=== PATIENT | female | born 1960 | race Caucasian/White ===

== ENCOUNTER → 2016-08-12 | Outpatient (CLI) | payer OTHER ==
[~2016-08-12] MED LIST: BIRTH CONTROL
--- NOTE | 2016-08-12 17:46 | DI ---
EXAM: MRI ANKLE LEFT W/O CONTRAST [place] [facility] [place]ORY: ITS.REASON: M25.572 LEFT ANKLE PAIN . Pain started in March. Swelling off-and-on. Pain started on lateral side. Has also moved to heal/Achilles. COMPARISON: None available. TECHNIQUE: T-1, proton or T-2 fat saturation, or STIR images were obtained in the axial, sagittal and coronal planes through the ankle. FINDINGS: A sliver of increased T2 signal is seen within the intrasubstance of the distal Achilles tendon which could merely be a normal variation although a intrasubstance tear or tendinosis cannot be excluded. There is a trace of fluid signal adjacent to the tibialis posterior and flexor hallucis longus tendons which may represent minimal tenosynovitis. The peroneal longus and brevis tendons are intact and appear unremarkable. The tibiocalcaneal ligament is intact. The calcaneofibular ligament is thought to be intact. The anterior and posterior tibiotalar ligaments are thought to be intact. The anterior and posterior talofibular ligaments are thought to be intact although the anterior talofibular ligament is somewhat ill-defined. Subcutaneous edema is seen surrounding the ankle. There is a small ankle effusion present. There is mild increased T2 signal superficial to the plantar fascia. The talar dome and tibial plafond are intact. There is mild increased T2 signal at the medial aspect of the lateral malleolus. Some subchondral increased T2 signal is also seen at the mid tibial plafond and. The talar dome is unremarkable. No abnormal signal is seen within the calcaneus, cuboid, navicular, or cuneiforms bones. The bases of the metatarsals are intact as well. The extensor tendons are intact and appear unremarkable. IMPRESSION: 1. Minimal 2. Minimal tenosynovitis of the tibialis posterior and flexor hallucis longus tendons. 2. There is a sliver of intrasubstance signal seen within the distal Achilles tendon. This may merely be a normal variation. An intrasubstance tear or tendinosis cannot be entirely excluded but seems less likely. 3. Subcutaneous changes edema seen surrounding the ankle. 4. Small ankle effusion. 5. Mild increased T2 signal changes are seen superficial to the plantar fascia at its attachment to the calcaneus. 6. Focal area of subchondral edema is seen at the mid tibial plafond which is of uncertain etiology. A early osteochondral injury cannot be entirely excluded. 7. Subchondral edema seen at the medial aspect of the lateral malleolus which may be related to degenerative change. .
== END ==
LOC: IMA 09:27
PROVIDERS: ATTEND Family Medicine Sports Medicine
DX: M25.472 Effusion, left ankle (principal); M65.9 Synovitis and tenosynovitis, unspecified; R60.0 Localized edema; R93.7 Abnormal findings on diagnostic imaging of other parts of musculoskeletal system; M25.572 Pain in left ankle and joints of left foot

== ENCOUNTER 2017-08-25 22:01 | Observation (INO) ==
--- OUTSIDE RECORDS SUMMARY | 2017-08-25 22:32 | External Medical Summary | Summary of Care ---
:1960 Author Name Charlie Martinez M.D. Address Unavailable Unavailable , Care Team Providers Name Role Phone Michelle Barrios, Charlie Unavailable Unavailable Erendira Akhtar Unavailable Unavailable Unavailable Unavailable Unavailable Functional Status Functional Status Health Issues Name Dates Details Functional status health issues are not documented Status: Cognitive Status Health Issues Name Dates Details Cognitive status health issues are not documented Status: Problems Name Dates Details Peritonsillar abscess (475, J36) Status: Active Medications Name Dates Details Amoxicillin 125 MG Oral Tablet Chewable Refills: 0 Start 29-Jan-2016 Active PredniSONE 10 MG Oral Tablet TAKE 4 TABLETS DAILY FOR 3 DAYS,3 TABLETS DAILY FOR 3 DAYS, 2 TABLETS DAILY FOR 3 DAYS AND 1 TABLET DAILY FOR 3 DAYS, THEN STOP. Quantity: 30 Refills: 0 Charlie Martinez M.D. Start 29-Jan-2016 Active Allergies and Adverse Reactions Name Dates Details Sulfa Drugs (Allergy) Status: Active Procedures Procedure Dates Details ABSCESS/CYST CULTURE (Aerobic and Ananerobic) X02032 Ordered: 29-Jan-2016 Immunization Name Dates Details Immunizations not documented Family History Mother Name Dates Details Family history of cardiac disorder (V17.49, Z82.49) Status: Active Family history of hypertension (V17.49, Z82.49) Status: Active Family history of diabetes mellitus (V18.0, Z83.3) Status: Active Social History Name Dates Details - Status: Smoking Status Name Dates Details Never smoker Vital Signs Date Test Result Details 29-Jan-2016 09:34 Temperature 97.9 f Status: Comments: Method: Heart Rate 67 /min Status: Comments: Location: ; Physical Findings 19 Status: Comments: Respiration Weight 150 lb Status: Physical Findings 98 Status: Comments: O2 Saturation Results Date Description Value Details Results not documented Plan of Care Name Dates Details Planned Observations Planned Goals not documented Planned Encounters Appointment; Provider: Charlie Martinez M.D. On 09-Feb-2016 13:15 Interventions Provided Medication ChangesPredniSONE 10 MG Oral Tablet - StartLabs/Procedures/Imaging ABSCESS/CYST CULTURE (Aerobic and Ananerobic) [id number]; To be Done: 29 Jan 2016 Instructions Name Dates Details Instructions not documented Encounters Appointment; Charlie Martinez M.D. On 29-Jan-2016 Encounter Diagnosis: Problem not documented 09:45
--- OUTSIDE RECORDS SUMMARY | 2017-08-25 22:32 | External Medical Summary | Summary of Care ---
:1960 Author Name Charlie Martinez M.D. Address Unavailable Unavailable , Care Team Providers Name Role Phone Charlie Martinez M.D. Unavailable Unavailable Erendira Akhtar Unavailable Unavailable Unavailable Unavailable Unavailable Functional Status Functional Status Health Issues Name Dates Details Functional status health issues are not documented Status: Cognitive Status Health Issues Name Dates Details Cognitive status health issues are not documented Status: Problems Name Dates Details Active medical history not documented Status: Medications Name Dates Details Amoxicillin 125 MG Oral Tablet Chewable Refills: 0 Start 29-Jan-2016 Active Allergies and Adverse Reactions Name Dates Details Sulfa Drugs (Allergy) Status: Active Procedures Procedure Dates Details Procedures not documented Immunization Name Dates Details Immunizations not documented [...] Details Planned Observations Planned Goals not documented Instructions Name Dates Details Instructions not documented Encounters Appointment; Charlie Martinez M.D. On 29-Jan-2016 Encounter Diagnosis: Problem not documented 09:45
--- OUTSIDE RECORDS SUMMARY | 2017-08-25 22:32 | External Medical Summary | Summary of Care ---
:1960 Author Name Michelle Barrios Charlie Address Unavailable Unavailable , Care Team Providers Name Role Phone Michelle BarriosCharlie Unavailable Unavailable Erendira Akhtar Unavailable Unavailable Unavailable [...] DAYS, THEN STOP. Quantity: 30 Refills: 0 Michelle Barrios Charlie Start 29-Jan-2016 Active Allergies and Adverse Reactions [...] O2 Saturation Results Date Description Value Details 04-Feb-2016 10:33 ABSCESS/CYST CULTURE (Aerobic Comments: [facility] performed at: [place], [facility], [address] [place], [address], Dressage Judge: Yung Donald D.O., MPHQuest Collection Date/Time: and Silvana [id number] Results Received Date/Time: [id number] Reported Date/Time: [id number] RIGHT PERITONSILLAR ABSCESS FASTING:NOQuest performed at: [place], [facility], [address] [facility], [place], [place], [address] [place] [address], Dressage Judge : Yung Donald D.O., MPHQuest Collection Date/Time: [id number] Results Received Date/Time: [id number] Repor sp Date/Time: [id number] RIGHT PERITONSILLAR ABSCESS FASTING:NOQuest performed at: [place], [facility], [address] [place], [place], [address] [place] [address], Dressage Judge: Yung Donald D.O., MPHQuest Collection Date/Time: [id number] Results Received Date/Time: [id number] Reported Date/Time: [id number] RIGHT PERITONSILLAR ABSCESS FASTING:N OQuest performed at: [place], [facility] [place], [address] [facility], [place], [place], [address] [place] [address], Dressage Judge: Yung Donald D.O., MPHQuest Collection Date/Time: [id number] Results Received Date/Time: [id number] Reported Date/Time: [id number] RIGHT PERITONSILLAR ABSCESS FASTING:NOQuest performed at: [place], [facility], [address] [facility], [place], [place], [address] [place] [address], Dressage Judge: Yung Donald D.O., MPHQuest Collection Date/Time: [id number] Results Received Date/Time: [id number] Repo rted Date/Time: [id number] RIGHT PERITONSILLAR ABSCESS FASTING:NO CULTURE, ANAEROBIC BACTERIA SEE NOTE Comments: CULTURE, ANAEROBIC BACTERIA W/GRAM STAIN MICRO NUMBER: [id number] TEST STATUS: FINAL SPECIMEN SOURCE: ABSCESS SPECIMEN QUALITY: ADEQUATE GRAM STAIN: Moderate White blood cells W/GRAM STAIN seen Many Mixed bacterial paddy RESULT : A mix of non-predominating organisms of questionable significance was recovered on cultur e and not further identified. (Note: Growth does not include B.fragilis group or C.perfringens.)[KS]----- CULTURE, AEROBIC BACTERIA SEE NOTE Comments: CULTURE, AEROBIC BACTERIA MICRO NUMBER: [id number] TEST STATUS: FINAL SPECIMEN SOURCE: ABSCESS SPECIMEN QUALITY: ADEQUATE RESULT: No oropharyngeal pathogens recovered.[KS]----- Plan of Care Name Dates Details Planned Observations Planned Goals not documented Instructions Name Dates Details Instructions not documented Encounters Appointment; Charlie Martinez M.D. On 29-Jan-2016 Encounter Diagnosis: Problem not documented 09:45
[2017-08-25] MEDS ORDERED: SALINE FLUSH 10ml SYRINGE IVF PRN (22:33)
--- NOTE | 2017-08-25 22:41 | Emergency Department Report ---
General Adult HPI - General Chief complaint: Extremity Problem,Nontraumatic <August,James 08/25/17 23:57> Stated complaint: tingly in left arm, hot flashes <08/25/17 23: 57> Source: patient <Apple Linton 08/25/17 22:42> Mode of arrival: ambulatory <Apple Linton 08/25/17 22:42> Limitations: no limitations <Apple Linton 08/25/17 22:42> - History of Present Illness HPI narrative: PT presents with a complaint of left hand and arm tingling. Pt was sitting on the couch looking at her tablet when she noted the numbness and tingling. Pt denies sitting on her arm or having it positioned in a way that would cut off circulation. Pt then reports having a hot flash. her biggest concern is that she had a physical about 2 weeks ago at which she had a heart rate of 44. She was then referred to cardiology who did a preliminary [facility] PT denies SOA, chest pain, cough, leg swelling, recent fever or illness, N/V/D. She states the tingling to her hand is almost resolved. She reports she has maintained motor and sensation with the numbness and tingling. She is concerned she may be having a heart attack and is worried about her heart rate. <Apple Linton 08/25/17 22:42> Onset (ago): minute(s) <Apple Linton 08/25/17 22:42> Location: upper extremity <Apple Linton 08/25/17 22:42> Radiation: non-radiation <Apple Linton 08/25/17 22:42> - Related Data Home Medications Medication Instructions Recorded Confirmed No known Home medications [No home 08/25/17 08/25/17 meds] <08/25/17 23:57> Allergies Allergy/AdvReac Type Severity Reaction Status Date / Time Sulfa (Sulfonamide Allergy RASH Verified 08/25/17 22:15 Antibiotics) skin so soft bobby product AdvReac Unknown Uncoded 08/25/17 22:15 <May08/25/17 23:57> Review of Systems All systems: reviewed and negative except as stated <Apple Linton 22:42> Constitutional: Reports: as per HPI <Apple Linton 08/25/17 22:42> Cardiovascular: Reports: as per HPI <Apple Linton 08/25/17 22:42> Respiratory: Reports: as per HPI <Apple Linton 08/25/17 22:42> Gastrointestinal: Reports: as per HPI <Apple Linton 08/25/17 22:42> Musculoskeletal: Reports: as per HPI <Apple Linton 08/25/17 22:42> Neurological: Reports: as per HPI <Apple Linton 08/25/17 22:42> [facility] Medical History (Last Reviewed 09/09/16 @ 11:18 by Lana Sainz MD) Hypercholesterolemia (Acute Medical) <eb 08/25/17 23:57> Clinic Medical History (Last Reviewed 09/09/16 @ 11:18 by Lana Sainz MD) Hypercholesterolemia (Acute Medical) <Apple garcia 08/25/17 22:42> Surgical History: Breast biopsy. Colonoscopy <Apple Linton 08/25/17 22:42> Family History: Family History (Last Reviewed 09/09/16 @ 11:18 by Lana Sainz MD) Mother High blood pressure Diabetes Paternal Grandmother Stroke Maternal Aunt Cancer of breast <08/25/17 23:57> Family History (Last Reviewed 09/09/16 @ 11:18 by Lana Sainz MD) Mother High blood pressure Diabetes Paternal Grandmother Stroke Maternal Aunt Cancer of breast <Apple Linton 08/25/17 22:42> - Social History Smoking status: Never smoker <Apple Linton 08/25/17 22:42> Substance use type: does not use <Apple Linton 08/25/17 22:42> Alcohol intake: current <Apple Linton 08/25/17 22:42> Alcohol intake frequency: other <NataliazachmadisonApplenaila Chen 08/25/17 22:42> Household members: spouse <Apple Linton 08/25/17 22:42> Current occupational status: employed <RoyerApplenaila Chen 08/25/17 22:42> 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 <Apple Linton 08/25/17 22:42> Physical Exam - Limitations Limitations: no limitations <Apple Linton 08/25/17 22:42> - General General appearance: alert, in no apparent distress <Apple Linton 08/25 22:42> - Normal Exams: Head:: Normocephalic without trauma <Apple Linton 08/25/17 22:42> Chest/Respirations:: Clear all solis, with good airflow, and symmetry bilaterally <Apple Linton 08/25/17 22:42> Cardiovascular:: Regular rate and rhythm (slow ), without murmur or gallop, Pulses 2+ all extremities, capillary refill, <2 seconds all extremities < RoyerApplenaila Chen 08/25/17 22:42> Abdomen:: Bowel sounds positive, soft, non-tender, non-distended <Apple Linton 08/25/17 22:42> Musculoskeletal:: No tenderness, or deformity noted, good range of motion, all extremities <Apple Linton 08/25/17 22:42> Integumentary:: No rashes <Apple Linton 08/25/17 22:42> Neurological:: Patient is alert, and oriented, cranial nerves, motor/sensory/ cerebellar, exams w/o gross deficits, to observation <Apple Linton 22:42> Psychiatric:: Patient exhibits, appropriate attention, emotion and affect < Apple Linton 08/25/17 22:42> Course Vital Signs Temperature 97.6 F 08/25/17 22:05 Pulse Rate 45 L 08/25/17 22:05 Respiratory Rate 18 08/25/17 22:05 Blood Pressure 164/75 H 08/25/17 22:05 Pulse Oximetry 98 08/25/17 22:05 Temperature 97.6 F 08/25/17 22:05 Pulse Rate 54 L 08/25/17 23:45 Respiratory Rate 18 08/25/17 23:45 Blood Pressure 134/72 08/25/17 23:45 Pulse Oximetry 96 08/25/17 23:45 <AugustJames - 08/25/17 23:57> Vital Signs Temperature 97.6 F 08/25/17 22:05 Pulse Rate 45 L 08/25/17 22:05 Respiratory Rate 18 08/25/17 22:05 Blood Pressure 164/75 H 08/25/17 22:05 Pulse Oximetry 98 08/25/17 22:05 Temperature 97.6 F 08/25/17 22:05 Pulse Rate 45 L 08/25/17 22:05 Respiratory Rate 18 08/25/17 22:05 Blood Pressure 164/75 H 08/25/17 22:05 Pulse Oximetry 98 08/25/17 22:05 <Apple Linton 08/25/17 22:42> Medical Decision Making - [facility] Narrative Medical decision making narrative: PT reports resolution of tingling to fingertips. EKG shows Mobitz II. Labs and X ray reviewed with no acute findings. Although pt cannot specifically identify particular complaints she has stated that she just "doesn't feel right". Discussed pt presentation and findings with Shante with Dr Bernal who feels pt could be admitted observation at this time and will be seen by Gabe in the am. Plan and potential expectations of stay discussed with pt and family who verbalize understanding. Pt has remained 45-64 on telemetry while in the ER. <Apple Linton 08/25/17 23:52> - Differential Diagnosis bradycardia, anemia, AMI, nerve impingement <Apple Linton 08/25/17 22: 42> - Lab Data Lab results reviewed: Yes: I reviewed the patient's lab results. <Apple Linton 08/25/17 23:52> Result diagrams: 08/25/17 23:21 08/25/17 23:21 <[facility] 08/25/17 23:57> Lab Results 08/25/17 08/25/17 Range/Units 23:21 23:21 WBC 14.5 H (4.5-11.0) T/MM3 RBC 4.59 (4.00-5.20) M/MM3 Hgb 13.2 (12-16) GM/DL Hct 40.3 (36-46) % MCV 87.8 (80-100) UM3 MCH 28.8 (26-34) UUG MCHC 32.8 (31-37) GM/DL RDW Std Deviation 47.1 (36.9-50.2) FL Plt Count 252 (130-400) T/MM3 MPV 9.6 (9.4-12.4) UM3 Immature Gran % (Auto) 0.2 (0.0-0.5) % Neut % (Auto) 50.7 (33-66) % Lymph % (Auto) 36.1 (23-45) % [place] % (Auto) 9.0 (0-9.0) % Eos % (Auto) 3.6 (0-4) % Baso % (Auto) 0.4 (0-2) % Neut # (Auto) 7.3 (1.8-7.7) T/MM3 Lymph # (Auto) 5.2 H (1-4.8) T/MM3 [place] # (Auto) 1.3 H (0-0.8) T/MM3 Eos # (Auto) 0.5 (0-0.5) T/MM3 Baso # (Auto) 0.1 (0-0.2) T/MM3 Abs Immat Gran (auto) 0.03 (0.00-0.03) T/MM3 Turbidity < 20 (0-20) Sodium 145 H (134-144) MEQ/L Potassium 3.7 (3.6-5) MEQ/L Chloride 107 (98-107) MEQ/L Carbon Dioxide 28 (22-30) MEQ/L Anion Gap 10 (5-15) meq/L BUN 21.0 H (7-17) MG/DL Creatinine 0.8 (0.7-1.2) mg/dL GFR Calculation 74 BUN/Creatinine Ratio 26 (6-26) RATIO Glucose 104 (65-110) MG/DL Calculated Osmolality 282 H (261-280) MOSM/KG Calcium 9.5 (8.4-10.2) MG/DL Total Bilirubin 0.20 (0.20-1.30) MG/DL Icterus Index < 2 (0-7) AST 28 (14-36) U/L ALT 33 (1-35) U/L Alkaline Phosphatase 113 (38-126) U/L Troponin I < 0.012 (0-0.12) ng/ml Total Protein 6.8 (6.3-8.2) g/dL Albumin 3.8 (3.5-5.0) g/dL Globulin 3.0 (2.4-3.6) G/DL Albumin/Globulin Ratio 1.3 (1.1-2.2) RATIO Specimen Hemolysis < 15 (0-25) <08/25/17 23:57> - Radiology Data Radiology results reviewed: Yes: I reviewed the patient's radiology results. < Apple Linton 08/25/17 23:52> no acute findings per August <Apple Linton 08/25/17 23:52> - EKG Data EKG #1 EKG attestation: Yes: I reviewed and interpreted this EKG. <08/25 23:57> Yes: I reviewed and interpreted this EKG. <Apple Linton 08/25/17 23:52> EKG shows normal: sinus rhythm, axis, QRS complexes, ST-T waves <08/25/17 23:57> Rate: bradycardia <08/25/17 23:57> bradycardia <Apple Linton 08/25/17 23:52> Heart block present: Mobitz 2 <08/25/17 23:57> Disposition Clinical Impression: Bradycardia, Mobitz II <08/25/17 23:57> Disposition: 02 To [facility] [place] <08/25/17 23:57> Condition: Stable <08/25/17 23:57> Instructions: <08/25/17 23:57> Prescriptions: No Action No known Home medications [No home meds] 0 #0 misc <08/25/17 23:57> Referrals: Erendira Akhtar MD [Primary Care Provider] - <James Kebede 23:57> Forms: <AugustJames 08/25/17 23:57> Time of Disposition: 23:52 <Apple Linton 08/25/17 23:52> - Seen By: midlevel <Apple Linton 08/25/17 23:52>
[2017-08-26 00:07] VITALS: BMI 30.9
[2017-08-26] MEDS ORDERED: ASPIRIN *EC* 81 MG TABLET PO ONE (00:27)
[2017-08-26] MEDS ORDERED: ACETAMINOPHEN 325 MG TABLET PO PRN (00:28)
[2017-08-26] MEDS ORDERED: ONDANSETRON 4 MG TABLET PO PRN (00:29)
[2017-08-26] MEDS ORDERED: MAG-AL + SIM ORAL LIQUID 30ml PO PRN (00:30)
[2017-08-26] MEDS ORDERED: ENOXAPARIN 30 MG/0.3 ML INJECTION SQ SCH (00:30)
[2017-08-26] MEDS ORDERED: ENOXAPARIN 30 MG/0.3 ML INJECTION SQ ONE (06:45)
[2017-08-26] MEDS ORDERED: NITROGLYCERIN 0.4 MG SUBLINGUAL TABLET SL PRN (07:13)
--- NOTE | 2017-08-26 08:08 | XRay Report ---
INDICATION: arm tingling, low HR PROCEDURE: CHEST 2-VIEWS UPRIGHT (PA & LAT) Encounter: Initial COMPARISON: None FINDINGS: The lungs are clear without evidence of focal abnormal airspace opacity. There is no pleural effusion or pneumothorax. The heart size, mediastinal contours and pulmonary vascularity are within normal limits. There is no significant skeletal abnormality. IMPRESSION: No acute cardiopulmonary disease. .
[2017-08-26 12:15] VITALS: BP 125/65; PULSE 46; RESP 24; TEMP 98; O2SAT 96
--- NOTE | 2017-08-26 14:11 | Discharge Summary ---
Discharge Information Date of admission: 08/25/17 23:46 Anticipated date of discharge: 08/26/17 Attending Physician: Dennis Bernal MD Primary care physician: Erendira Akhtar MD Bradycardia - Laboratory Labs: 08/26/17 05:59 08/26/17 05:59 History of Present Illness HPI: Shante is a 57 year old female who is known to Dr. Bernal with a recent history of bradycardia. She was seen by him on 08/24/17 in the clinic, referred by her PCP for low pulse. She was scheduled to wear a Holter monitor for 24 hours however last night was watching TV when her left arm "went to sleep" and left hand was tingling. She came to the ED to have further evaluation. She was admitted to Dr. Bernal for observation and further evaluation of bradycardia. She denies symptoms such as dizziness, lightheadedness, syncope, chest pain, palpitations, dyspnea, fatigue or weakness. Hospital Course This is a general summary of the patient's hospital course. For more details refer to the complete medical record. Hospital course: Patient was monitored on telemetry and serial troponin were negative. EKG shows some conduction disease but she remains asymptomatic. Will follow up for outpatient stress test in 2 weeks. Time spent with patient: 25 - 35 minutes Resuscitation Status: Full Code Exam Vital signs: Temperature 98.0 F 08/26/17 12:13 Pulse Rate 46 L 08/26/17 12:13 Respiratory Rate 24 08/26/17 12:13 Blood Pressure 125/65 08/26/17 12:13 Pulse Oximetry 96 08/26/17 12:13 - Constitutional no acute distress, well nourished, cooperative - Routine HEENT Exam Head: Present: normocephalic ENT: Present: mucous membranes moist - Routine Neck Exam Absent: JVD, carotid bruit - Routine Chest/Breast/Axilla Exam Chest wall: Absent: tenderness - Routine Respiratory Exam Present: CTA bilaterally. Absent: dyspnea, rales, wheezes - Routine Cardiovascular Exam Present: no murmur, bradycardia. Absent: JVD - Routine Abdominal Exam Present: soft, non tender - Routine Extremities Exam Present: no edema - Routine Skin Exam Present: intact, dry, warm - Routine Neurological Exam Present: alert, oriented X3 - Routine Psychiatric Exam Present: normal affect, normal thought process Results 08/26/17 05:59 08/26/17 05:59 Cardiac Enzymes 08/26/17 Range/Units 05:59 Troponin I < 0.012 (0-0.12) ng/ml Lipids 08/26/17 Range/Units 05:59 Triglycerides 81 (35-135) mg/dL Cholesterol 166 (132-199) mg/dL HDL Cholesterol 63 H (40-60) mg/dL Cholesterol/HDL Ratio 2.6 (0-4.0) RATIO CBC 08/26/17 Range/Units 05:59 WBC 10.7 (4.5-11.0) T/MM3 RBC 4.64 (4.00-5.20) M/MM3 Hgb 13.5 (12-16) GM/DL Hct 40.9 (36-46) % Plt Count 215 (130-400) T/MM3 Comprehensive Metabolic Panel 08/26/17 Range/Units 05:59 Sodium 144 (134-144) MEQ/L Potassium 4.5 D (3.6-5) MEQ/L Chloride 109 H (98-107) MEQ/L Carbon Dioxide 27 (22-30) MEQ/L BUN 17.0 (7-17) MG/DL Creatinine 0.7 (0.7-1.2) mg/dL Glucose 87 (65-110) MG/DL Calcium 9.2 (8.4-10.2) MG/DL Intake and Output 08/25/17 08/26/17 08/26/17 22:59 06:59 14:59 Output Total 550 / 550 200 / 200 Balance -550 / -550 -200 / -200 Output: Urine 550 / 550 200 / 200 Other: Urine Appearance Clear Clear Urine Color Pale Yellow Yellow Urine Odor Normal Weight 169 lb 5.04 oz 167 lb 15.876 oz Patient Weight 08/27/17 06:59 Weight 167 lb 15.876 oz - Imaging and Cardiology Imaging & Cardiology Narrative: Date of Exam: 08/25/17 Ordering Provider: Apple Linton APRN Type of Exam(s): XR chest 2V Reason for Exam(s): arm tingling, low HR INDICATION: arm tingling, low HR PROCEDURE: CHEST 2-VIEWS UPRIGHT (PA & LAT) Encounter: Initial COMPARISON: None FINDINGS: The lungs are clear without evidence of focal abnormal airspace opacity. There is no pleural effusion or pneumothorax. The heart size, mediastinal contours and pulmonary vascularity are within normal limits. There is no significant skeletal abnormality. IMPRESSION: No acute cardiopulmonary disease. . 08/26/17 14:14 Discharge Plan - Med Rec/Dispo Referrals/Follow Up: Dennis Bernal MD [Physician] - 09/12/17 3:00 pm [place] Instructions: Bradycardia (ED) Prescriptions: Continue No known Home medications [No home meds] 0 #0 misc - Disposition 01 Discharged Home, Self-Care - Dismissal Complete Discharge Instructions are:: Complete
== END 2017-08-26 14:55 | disposition home or self-care (01) ==
LOC: SRG 22:01 → ED 22:01 → SRG 08-26 00:03
PROVIDERS: ADMIT Internal Medicine Cardiovascular Disease; ATTEND Internal Medicine Cardiovascular Disease